=== PATIENT | female | born 1990 | race Caucasian/White ===

== ENCOUNTER 2024-06-27 15:43 | Emergency (ER) | payer SELFPAY ==
[2024-06-27] VITALS (7 sets, daily range): BP systolic 99–145; BP diastolic 53–82; PULSE 56–72; RESP 12–18; TEMP 36.5; O2SAT 97–99; BMI 36.0
--- NOTE | 2024-06-27 15:40 | ECG_ITS ---
APPROVED REPORT Exam: Resting ECG HR:78 bpm ECG Measurements Heart Rate 78 AXES ME 164 P 34 QRSd 98 QRS 29 QT 374 T 54 QTc 407 Conclusion SINUS RHYTHM WITH FREQUENT VENTRICULAR PREMATURE COMPLEXES ABNORMAL RHYTHM ECG UNCONFIRMED REPORT Electronically signed by : BAUDILIO GAY, 06/29/2024 02:36:53
--- NOTE | 2024-06-27 15:54 | XR_ITS ---
PROCEDURE INFORMATION: Exam: XR Chest Exam date and time: 06/27/2024 4:31 PM Age: 33 years old Clinical indication: Other: Palps; Additional info: Palps, PT unable to remove piercings TECHNIQUE: Imaging protocol: Radiologic exam of the chest. Views: 1 view. COMPARISON: No relevant prior studies available. FINDINGS: Lungs: There is a nodular density in the superolateral right upper lobe measuring approximately 2.1 x 1.6 cm. The lungs appear otherwise clear. No focal areas of consolidation. Pleural spaces: No pleural effusions. Negative for pneumothorax. Heart/Mediastinum: Cardiac silhouette and pulmonary vasculature are within range of normal. Bones/joints: There is no evidence of acute fracture. IMPRESSION: 1. Nodular density in the superolateral right upper lobe measuring approximately 2.1 x 1.6 cm. Recommend comparison with any prior studies to evaluate for stability. If no prior studies are available, recommend further characterization with cross-sectional imaging.
[2024-06-27 16:00] LABS: Basophils # 0.1 K/mm3 (0-0.2); Basophils % 0.6 % (0.1-2.0); Eosinophils # 0.3 K/mm3 (0.0-0.4); Eosinophils % 2.5 % (0.1-12.0); Hematocrit 39.6 % (37.0-47.0); Lymphocytes # 2.9 K/mm3 (0.7-4.5); Lymphocytes % 27.9 % (10-50); Mean Corpuscular HGB Conc 32.8 g/dL (31.8-35.4); Mean Corpuscular Hemoglobin 27.7 pg (27.0-31.2); Mean Corpuscular Volume 84.3 fl (81-99); Mean Platelet Volume 11.7 fl (7.4-10.4); Monocytes # 0.6 K/mm3 (0.1-1.0); Monocytes % 5.5 % (1.7-9.3); Neutrophils # 6.7 K/mm3 (1.8-7.8); Neutrophils % 63.3 % (37.0-80.0); Platelet Count 221 K/mm3 (142-424); Red Cell Distribution Width 12.7 % (11.5-17.5); White Blood Count 10.5 K/mm3 (4.8-10.8)
--- NOTE | 2024-06-27 16:02 | [facility].EDCP ---
Discharge Plan Disposition Patient Disposition: Home, Self-Care Chief Complaint: Chest Pain Referrals Follow up/Referrals: Provider,Referral, MD [Primary Care Provider] - See instructions Activity Restrictions/Add. Instructions Additional Instructions/Restrictions: Call your family doctor to establish care for this visit to the emergency department and schedule follow-up within 48 hours to ensure improvement. If you have any worsening of your condition or any other concerning signs or symptoms, return to the emergency department or your primary care doctor for further evaluation. If you continue having symptoms, talk to family doctor about referral to cardiology. Clinical Impressions Clinical Impression: Anxiety, Acute stress reaction, Right upper lobe pulmonary nodule Print Language Print Language: Macedonian Discharge ED Provider: Justin Diamond HPI General Chief Complaint: Chest Pain Stated Complaint: Chest palpitations Time Seen by Provider: 06/27/24 15:50 Mode of Arrival: Ambulatory Source of Information: Patient Limitations: No Limitations Description of Symptoms (Recalled from ER Triage Doc. by RN): c/o feeling of palpitations and chest tightness for one week History of Present Illness HPI narrative: Please note that above description of symptoms, in this electronic medical record under categorization of recalled from ER triage doctor by RN are reflective of an initial nursing assessment, however, is not reflective of my full history and physical exam that was personally taken and clarified. Consequentially, this preceding description of symptoms, which may include the patient's categorized chief complaint in the EMR, do not reflect my personal clinical impression, and the ultimate description of history of present illness and patient stated complaints should be deferred to this section of the note. Unless stated otherwise or congruent with this section of the note, additional signs, symptoms, or incongruence should be interpreted as inaccurate with my clinical impression. Related Data Allergies Allergy/AdvReac Type Severity Reaction Status Date / Time Penicillins Allergy Other Verified 06/27/24 15:53 [facility] Disclaimer: The information contained in this section may have been updated after the patient was seen, as this information can be updated by other users. Social History Smoking Status: Never smoker alcohol intake: never current occupational status: employed Travel in the last 8 weeks: None ROS Obtained: Yes All systems reviewed & no additional complaints except as documented Physical Exam General General appearance: alert, in no apparent distress and anxious Neck Neck exam: Present trachea midline Chest Chest inspection: Present normal inspection and symmetric chest wall rise Respiratory Respiratory exam: Present normal lung sounds bilaterally; Absent respiratory distress, wheezes, stridor, accessory muscle use or prolonged expiratory phase Cardiovascular Cardiovascular exam: Present regular rate, normal rhythm and other (Pulses equal and symmetric in upper and lower extremities. Intermittent ectopic beats) Extremities Exam Extremities exam: Absent edema Neurological Exam Neurological exam: Present alert, oriented X3 and CN II-XII intact Skin Skin exam: Present warm and dry; Absent cyanosis, diaphoresis or pallor HEART Score HEART Score HEART Score assessment performed?: Yes HEART Score: 0 Critical Care Critical Care Time Critical Care Time: No Medical Decision Making Medical Records Medical records reviewed: Yes I reviewed the patient's medical records. Tera Inquiry Pt receiving controlled substance: No Tera was queried for this patient: No Vital Signs Vital Signs: 06/27/24 15:43 06/27/24 15:53 06/27/24 16:01 Temperature 97.7 F Temperature Source Oral Pulse Rate 65 64 Pulse Rate [Left Radial] 72 Respiratory Rate 18 Blood Pressure 122/77 Blood Pressure [Right Arm] 129/81 Blood Pressure Mean 94 Blood Pressure Mean [Right Arm] 97 02 Sat by Pulse Oximetry 97 99 Oxygen Delivery Method Room Air Room Air 06/27/24 16:30 06/27/24 17:01 06/27/24 17:31 Temperature Temperature Source Pulse Rate 56 L 65 61 Pulse Rate [Left Radial] Respiratory Rate 12 12 12 Blood Pressure 99/65 L 145/82 H 110/53 L Blood Pressure [Right Arm] Blood Pressure Mean Blood Pressure Mean [Right Arm] 02 Sat by Pulse Oximetry 97 97 97 Oxygen Delivery Method Room Air Room Air Room Air Lab Data Labs: Lab Results 06/27/24 15:47: WBC 10.5, RBC 4.70, Hgb 13.0, Hct 39.6, MCV 84.3, MCH 27.7, MCHC 32.8, RDW 12.7, Plt Count 221, MPV 11.7 H, Neut % (Auto) 63.3, Lymph % (Auto) 27.9, [place] % (Auto) 5.5, Eos % (Auto) 2.5, Baso % (Auto) 0.6, Neut # (Auto) 6.7, Lymph # (Auto) 2.9, [place] # (Auto) 0.6, Eos # (Auto) 0.3, Baso # (Auto) 0.1, APTT 24.2, D-Dimer 0.43, Total Creatine Kinase 71, Troponin I < 0.01, NT-Pro-B Natriuret Pep 111, TSH 1.57, Thyroxine (T4) 11.8 H, HCG, Quant < 2 06/27/24 15:56: Sodium 138, Potassium 3.5, Chloride 105, Carbon Dioxide 25, Anion Gap 11.5, BUN 12, Creatinine 0.80, Estimated Creat Clear 166, Estimated GFR 83, Est GFR ( Amer) 101, Glucose 117 H, Calcium 9.4, Total Bilirubin 0.5, AST 39 H, ALT 36, Alkaline Phosphatase 60, Total Protein 7.3, Albumin 4.4, Globulin 2.9, Albumin/Globulin Ratio 1.5 06/27/24 15:47 06/27/24 15:56 Response Orders (Tests/Meds): ED MEDICATIONS Discontinued Medications Generic Name Dose Route Start Last Admin Trade Name Freq PRN Reason Stop Dose Admin Hydroxyzine Pamoate 50 mg 06/27/24 15:54 06/27/24 16:42 Hydroxyzine Pamoate 25mg Capsule PO 06/27/24 15:55 50 mg ONCE ONE Administration ORDERS Category Date Time Status CT chest wo con Stat Cat Scan 06/27/24 17:14 Completed XR chest portable Stat Exams 06/27/24 15:54 Completed CK [Creatine Kinase] Stat Lab 06/27/24 15:47 Completed CMP [Comprehensive Metabolic Panel] Stat Lab 06/27/24 15:56 Completed Complete Blood Count Auto Diff Stat Lab 06/27/24 15:47 Completed D-Dimer Stat Lab 06/27/24 15:47 Completed HCG,Quantitative Stat Lab 06/27/24 15:47 Completed NT Pro Brain Natriuretic Pep. Stat Lab 06/27/24 15:47 Completed PTT [Activated Partial Thrombo Time] Stat Lab 06/27/24 15:47 Completed T4 (Thyroxine) Stat Lab 06/27/24 15:47 Completed TSH [Thyroid Stimulating Hormone] Stat Lab 06/27/24 15:47 Completed Troponin I Q3H Lab 06/27/24 19:00 Ordered Troponin I Q3H Lab 06/27/24 22:00 Ordered Troponin I Stat Lab 06/27/24 15:47 Completed MDM Narrative Medical Decision Narrative: This is a 33-year-old female history of asthma, self reported A-fib in the past (allegedly follows with cardiology, never put on anticoagulation because it was never bad enough ), anxiety and panic attacks presenting with palpitations. Patient states that she has been having palpitations for the last couple of days because she has been going through a lot in her personal life. Says that she feels safe at home and at work, however she has been significantly more stressed. Palpitations are associated with lightheadedness and anxiety and she feels like she is constantly fighting off a panic attack. No syncopal episodes, neurologic deficits, chest pain, nausea, vomiting, cough, fevers, chills, or any other concerns. History was obtained via conversation with patient. On arrival, patient hemodynamically stable, alert, oriented x4, appropriate, GCS 15, moving all extremities spontaneously, pupils equal and reactive to light. Full physical exam performed and significant for very anxious appearing female no acute distress. Lungs are clear, cardiac exam with no murmurs or rubs, but she is having intermittent ectopic beats. Unknown if they are atrial versus ventricular in origin. Bilateral upper and lower extremities pulses intact and symmetric. No lower extremity edema. Patient nontachycardic, normotensive, not hypoxemic on the monitor. Differential includes anxiety, panic, acute stress reaction, adjustment reaction, less likely ACS, VT, PE, pneumothorax, among others. Patient was given hydroxyzine 50 mg for symptomatic management and correction of underlying abnormalities. Self-reported allergy of aspirin, not administered here. Patient placed on continuous cardiac monitoring and continuous pulse ox with initial blood pressure 129/81, pulse rate 72, O2 sat 97% on room air. Independent interpretation of EKG shows sinus rhythm 78 bpm with frequent PVCs. CT 164, QRS 98, QTc 407. Normal axis. No acute ischemic change. Workup independently interpreted and significant for nonactionable CBC or chemistry. Patient's CK and troponin as well as BNP and dimer are all negative. hCG negative. Thyroid studies negative. On independent interpretation of imaging, patient has nodule in right lung, CT ordered for further evaluation. Patient has calcified granuloma. See radiology read for full review of final results. Heart score 0. On reevaluation, patient looking and feeling much better. Given patient presentation, workup, history, this most likely represents anxiety in the setting of acute stressor. Further conversation reveals that patient's father recently had bypass surgery and patient is very stressed about this. Given workup, I feel she is appropriate for discharge and outpatient management. Because patient at baseline without signs or symptoms of clinical decompensation, deemed appropriate for discharge. Results were relayed to patient who voiced understanding and were agreeable to outpatient management and follow up. I discussed my clinical impression with patient and answered all questions. At this time, the evidence for any other entities in the differential is insufficient to warrant any further testing or ED observation. This was explained as well. Advisory was given that persistent or worsening symptoms require further evaluation. I confirmed the understanding of this discussion. Bond Underwriter disclaimer Much of this encounter note is an electronic dance choreographer spoken language to printed text. Electronic dance choreographer of the spoken language may permit errors. Although I have reviewed the note, some errors may still exist.
[2024-06-27 16:05] LABS: Creatine Kinase 71 U/L (30-135)
[2024-06-27 16:13] LABS: Activated Partial Thrombo Time 24.2 seconds (22.8-30.6)
[2024-06-27 16:15] LABS: NT Pro Brain Natriuretic Pep. 111 pg/mL (0-125)
[2024-06-27 16:21] LABS: Troponin I < 0.01 ng/ml (0.00-0.034)
[2024-06-27 16:23] LABS: D-Dimer 0.43 ug/mL (0.0-0.5); T4 (Thyroxine) 11.8 ug/dl (5.53-11.0)
[2024-06-27 16:26] LABS: HCG,Quantitative < 2 mIU/ml (0-5.42)
[2024-06-27 16:36] LABS: Thyroid Stimulating Hormone 1.57 uIU/mL (0.465-4.68)
[2024-06-27] MEDS: hydrOXYzine pamoate 25MG CAPSULE 50 MG PO (16:42)
--- NOTE | 2024-06-27 17:14 | CT_ITS ---
PROCEDURE INFORMATION: Exam: CT Chest Without Contrast; Diagnostic Exam date and time: 06/27/2024 5:21 PM Age: 33 years old Clinical indication: Other: Eval rul nodule TECHNIQUE: Imaging protocol: Diagnostic computed tomography of the chest without contrast. Radiation optimization: All CT scans at this facility use at least one of these dose optimization techniques: automated exposure control; mA and/or kV adjustment per patient size (includes targeted exams where dose is matched to clinical indication); or iterative reconstruction. COMPARISON: CR XR CHEST PORTABLE 06/27/2024 4:31 PM FINDINGS: Thyroid: The visualized thyroid gland is normal. Lungs: There is a densely calcified nodular density in the right upper lobe with a mild branching peripheral pattern which most likely reflects either granuloma or carcinoid or potentially large broncholith. This measures approximately 0.8 x 1.7 x 1.6 cm. There is an adjacent small calcification consistent with granuloma. There is a 3 mm subpleural nodule in the posterior right lower lobe seen on series 5, image 266. Minimal linear markings in the right middle lobe suggest parenchymal scarring or atelectasis. The lungs are otherwise clear. Pleural spaces: There are no pleural effusions. No pneumothorax. Heart: The heart is not enlarged. There is a trace amount of pericardial fluid. No significant coronary arterial calcifications. Dual lead to follow a large calcified granuloma and/or carcinoid as seen on chest x-ray Lymph nodes: A few calcified right hilar and mediastinal lymph nodes indicate prior granulomatous disease. There is no evidence of pathologic adenopathy. Vasculature: No aortic aneurysm. Stomach: The visualized intra-abdominal structures are normal. Bones/joints: The thoracic spine demonstrates mild degenerative changes at multiple levels. There is no evidence of acute fracture. Soft tissues: No significant soft tissue edema. Other findings: Evaluation is limited by the lack of intravenous contrast. IMPRESSION: 1. Densely calcified nodular density in the right upper lobe measuring approximately 8 x 17 x 16 mm with a mild peripheral branching pattern which most likely reflects either granuloma or carcinoid. 2. 3 mm subpleural nodule in the posterior right lower lobe.If the patient does not have known cancer, follow up should be based on clinical information because of the low risk of cancer in this age group. (Reference: Alissa) REFERENCES: Alissa Lopez, et al. Guidelines for Management of Incidental Pulmonary Nodules Detected on CT Images: From the Fleischner Society 2017. Radiology. 2017;284(1):228-243.
[2024-06-27 17:48] LABS: Alanine Aminotransferase 36 U/L (12-78); Albumin Level 4.4 g/dl (3.5-5.0); Albumin/Globulin Ratio 1.5 (1.1-1.8); Alkaline Phosphatase 60 U/L (38-126); Anion Gap 11.5 mEq/L (5-15); Aspartate Amino Transferase 39 U/L (14-36); Bilirubin,Total 0.5 mg/dl (0.2-1.3); Blood Urea Nitrogen 12 mg/dl (7-17); Calcium 9.4 mg/dl (8.4-10.2); Carbon Dioxide 25 mmol/L (22.0-30.0); Chloride 105 mmol/L (98-107); Creatinine Clearance Estimated 166 mL/min (50-200); Estimated Glomerular Filt Rate 83 ml/min (>60); GFR (African American) 101 ML/MIN (>60); Globulin 2.9 g/dL (1.3-3.2); Glucose 117 mg/dl (74-100); Potassium 3.5 mmoL/L (3.5-5.1); Sodium 138 mmol/L (136-145); Total Protein,Serum 7.3 g/dl (6.3-8.2)
== END 2024-06-27 18:44 | disposition home or self-care (01) ==
PROVIDERS: Emergency Provider Emergency Medicine
DX: R91.1 Solitary pulmonary nodule (principal); F43.0 Acute stress reaction; F41.9 Anxiety disorder, unspecified; R07.9 Chest pain, unspecified; R00.2 Palpitations
CPT/HCPCS: 71045; 71250; 80053; 82550; 83880; 84436; 84443; 84484; 84702; 85025; 85378; 85730; 93005; 99284